=== PATIENT | male | born 1960 | race Asian ===

== ENCOUNTER 2025-09-14 07:23 | Outpatient (RCR) | payer OTHER, MEDICARE, SELFPAY | END 2025-09-14 23:59 | disposition home or self-care (01) | LOC: RPT 07:23 | PROVIDERS: ATTENDING PHYSICIAN Student in an Organized Health Care Education/Training Program; FAMILY PHYSICIAN Family Medicine | DX: M54.12 Radiculopathy, cervical region (principal); M54.6 Pain in thoracic spine; M47.812 Spondylosis without myelopathy or radiculopathy, cervical region; Z73.6 Limitation of activities due to disability; M25.511 Pain in right shoulder; M62.81 Muscle weakness (generalized); W19.XXXD Unspecified fall, subsequent encounter; Y93.89 Activity, other specified; Y92.89 Other specified places as the place of occurrence of the external cause; Y99.0 Civilian activity done for income or pay | CPT/HCPCS: 97010; 97110; 97140; 97162 ==

== ENCOUNTER 2025-10-14 06:45 | Outpatient (RCR) | payer OTHER, MEDICARE, SELFPAY | END 2025-10-14 23:59 | disposition home or self-care (01) | LOC: RPT 06:45 | PROVIDERS: ATTENDING PHYSICIAN Student in an Organized Health Care Education/Training Program; FAMILY PHYSICIAN Family Medicine | DX: M54.12 Radiculopathy, cervical region (principal); M54.6 Pain in thoracic spine; M47.812 Spondylosis without myelopathy or radiculopathy, cervical region; Z73.6 Limitation of activities due to disability; M25.511 Pain in right shoulder; M62.81 Muscle weakness (generalized); W19.XXXD Unspecified fall, subsequent encounter; Y93.89 Activity, other specified; Y92.89 Other specified places as the place of occurrence of the external cause; Y99.0 Civilian activity done for income or pay | CPT/HCPCS: 97010; 97110; 97140 ==

== ENCOUNTER 2025-11-14 06:41 | Outpatient (RCR) | payer OTHER, MEDICARE, SELFPAY | END 2025-11-14 08:15 | disposition home or self-care (01) | LOC: RPT 06:41 | PROVIDERS: ATTENDING PHYSICIAN Student in an Organized Health Care Education/Training Program; FAMILY PHYSICIAN Family Medicine | DX: M54.12 Radiculopathy, cervical region (principal); M54.6 Pain in thoracic spine; M47.812 Spondylosis without myelopathy or radiculopathy, cervical region; Z73.6 Limitation of activities due to disability; M25.511 Pain in right shoulder; M62.81 Muscle weakness (generalized); W19.XXXD Unspecified fall, subsequent encounter; Y93.89 Activity, other specified; Y92.89 Other specified places as the place of occurrence of the external cause; Y99.0 Civilian activity done for income or pay | CPT/HCPCS: 97010; 97110; 97140 ==